=== PATIENT | female | born 1990 | race Two or more races ===

== ENCOUNTER 2016-12-09 08:10 | Emergency (ER) | payer MEDICAID ==
[~2016-12-09] VITALS: Ht 175.3 cm; Wt 89.8 kg
[2016-12-09 08:38] VITALS: BP 125/80
[2016-12-09 09:16] LABS: BASOPHILS % (AUTO) 0.8 % (0.0-2.0); EOSINOPHILS % (AUTO) 2.6 % (0.0-3.0); LYMPHOCYTES % (AUTO) 27.8 % (20.0-45.0); MEAN CORPUSCULAR HGB CONC 33.4 G/DL (32.0-36.0); MEAN CORPUSCULAR VOLUME 90 FL (80-99); MEAN PLATELET VOLUME 7.8 FL (6.5-10.1); MONOCYTES % (AUTO) 13.7 % (1.0-10.0); NEUTROPHILS % (AUTO) 55.1 % (45.0-75.0); PLATELET COUNT 268 K/UL (150-450); RED BLOOD COUNT 4.37 M/UL (4.20-5.40); RED CELL DISTRIBUTION WIDTH 11.8 % (11.6-14.8); WHITE BLOOD COUNT 7.3 K/UL (4.8-10.8)
[2016-12-09 09:20] LABS: APPEARANCE,URINE SLIGHTLY CLOUDY; KETONES,URINE NEGATIVE (NEGATIVE); LEUKOCYTE ESTERASE ,URINE 1+ (NEGATIVE); NITRITE,URINE NEGATIVE (NEGATIVE); PH,URINE 5 (4.5-8.0); PROTEIN,URINE 1+ (NEGATIVE); UROBILINOGEN,URINE NORMAL MG/DL (0.0-1.0)
[2016-12-09 09:26] LABS: PROTHROMBIN TIME 9.9 SEC (9.30-11.50)
[2016-12-09 09:35] LABS: ALANINE AMINOTRANSFERASE 26 U/L (3-33); ALBUMIN/GLOBULIN RATIO 1.3 (1.0-2.7); ANION GAP 15 (5-15); ASPARTATE AMINO TRANSFERASE 21 U/L (5-40); CALCIUM 9.4 mg/dL (8.6-10.2); CARBON DIOXIDE 24 mEQ/L (20-30); CHLORIDE 98 mEQ/L (98-107); CREATININE 0.8 mg/dL (0.5-0.9); GLOMERULAR FILTRATION RATE > 60 mL/min (>60); HEMOLYSIS 8; LIPASE 19 U/L (< 60); POTASSIUM 4.3 mEQ/L (3.4-4.9); SODIUM 137 mEQ/L (135-145); TOTAL PROTEIN 7.4 g/dL (6.6-8.7)
[2016-12-09 09:54] LABS: RBC,URINE TNTC /HPF (0 - 2); SQUAMOUS EPITHELIAL CELL,UR FEW /LPF (NONE/OCC)
[2016-12-09 09:55] LABS: BACTERIA,URINE FEW /HPF
--- NOTE | 2016-12-09 11:28 | Diagnostic Imaging Report ---
Indications: Positive test, pelvic pain, vaginal bleeding, LMP 09/12/16 Technique: Transabdominal and transvaginal real-time grayscale and duplex Doppler imaging of the pelvis was performed. Findings: Comparison: None Uterus measures 9.1 x 4.5 x 4.7cm. It demonstrates normal contour and myometrial echotexture without focal abnormality. The endometrial complex measures 24 mm in diameter. Diffusely heterogeneous. Cystic structure with internal echoes appears to protrude from the endocervical canal into the vaginal vault, 2.3 x 2.4 x 2.6 cm. It contains small linear echogenic foci but no identifiable gestational sac or pole.. No free fluid is present in the cul-de-sac. Right ovary measures 3.1 x 2.5 x 2.2 cm. It contains a 9 mm simple cystic structure, additional smaller peripheral follicles.. Duplex Doppler imaging demonstrates normal blood flow. No extra-ovarian abnormality is seen. Left ovary measures 3.2 x 1.1 x 2.6 cm. It is unremarkable in appearance. Duplex Doppler imaging demonstrates normal blood flow. No extra-ovarian abnormality is seen. IMPRESSION: 2.6 cm cystic structure with internal echoes appearing to protrude from endocervical canal and vagina. This may represent a nonviable in the setting of incomplete Enlarged, heterogeneous endometrial echo complex may represent blood clot in the setting of . Retained products of conception not excludable. 9 mm dominant follicle versus other physiologic cyst right ovary
[2016-12-09] MEDS ORDERED: PERCOCET 5-3251 EACH ORAL (12:01)
[2016-12-09] MEDS: Oxycodone/Acetaminophen 5-325 ORAL ONE ×2 (12:06→12:13)
[2016-12-09 12:13] VITALS: BP 119/89
--- NOTE | 2016-12-10 15:39 | Emergency Room Report ---
History of Present Illness General Chief Complaint: OB/Uterine Contractions Source: Patient Present Illness HPI 26 YO F [id number], ~5 weeks with pelvic cramping, bleeding since this morning with passage of clots, ?tissue. Had previous miscarriage at 5-6 weeks as well. No known anatomic abnormalities. Denies abd pain, fever/chills, discharge, diarrhea, urinary complaints. Sono done last week showed "baby is small for age." No other abnormalities noted by patient. Allergies: Coded Allergies: No Known Allergies (Unverified , 12/09/16) Patient History Past Medical History: none Past Surgical History: none Pertinent Family History: none Social History: Denies: alcohol use, drug use, smoking Last Menstrual Period: 09/12/16 Now: No : 2 Para: 0 Immunizations: UTD Reviewed Nursing Documentation: PMH: Agreed, PSxH: Agreed Nursing Documentation-PMH Past Medical History: No Stated History Review of Systems All Other Systems: negative except mentioned in HPI Physical Exam Vital Signs Date Time Temp Pulse Resp B/P Pulse Ox O2 Delivery O2 Flow Rate FiO2 12/09/16 08:28 98.2 80 19 125/80 98 Room Air Sp02 EP Interpretation: reviewed, normal General Appearance: normal inspection, well appearing, no apparent distress, alert Head: atraumatic ENT: normal ENT inspection, hearing grossly normal, normal voice Neck: normal inspection, full range of motion, supple, no bony tend Respiratory: normal inspection, lungs clear, normal breath sounds, no respiratory distress, no retraction, no wheezing Cardiovascular #1: regular rate, rhythm, no edema Gastrointestinal: normal inspection, normal bowel sounds, non tender, soft, no guarding, no hernia Genitourinary: no CVA tenderness, other - no active hemorraging currently Musculoskeletal: normal inspection, back normal, normal range of motion, Peyton' s Sign negative Neurologic: normal inspection, alert, oriented x3, responsive, director marketing III-XII nml as tested, speech normal Psychiatric: normal inspection, judgement/insight normal, mood/affect normal Skin: normal inspection, normal color, no rash Medical Decision Making Diagnostic Impression: Primary Impression: Miscarriage ER Course Likely spontaneous /miscarriage. VSS. Afebrile. No systemic symptoms for illness or from septic or retained products H&H stable. RH + Ultrasound: "2.6 cm cystic structure with internal echoes appearing to protrude from endocervical canal and vagina. This may represent a nonviable in the setting of incomplete . Enlarged, heterogeneous endometrial echo complex may represent blood clot in the setting of . Retained products of conception not excludable." Consulted Dr Mortensen by phone from OB - does NOT recommend additional medical intervention or surgical intervention at this point as patient is naturally aborting. Advised PO analgesia and return parameters for excessive bleeding PO percocet given here and Rx for same for severe pain from DC home Last Vital Signs Date Time Temp Pulse Resp B/P Pulse Ox O2 Delivery O2 Flow Rate FiO2 12/09/16 12:13 78 16 119/89 99 Room Air 12/09/16 08:38 98.2 Status: improved Disposition: HOME, SELF-CARE Condition: Improved Scripts Oxycodone/Acetaminophen 5-325* (PERCOCET 5-325 MG TABLET*) 1 Each Tablet 1 TAB ORAL Q6H Y for For Pain, #12 TAB Prov: BERTO WHELAN M.D. 12/09/16 Patient Instructions: Miscarriage, [id number] Additional Instructions: - Your body with naturally continue the process of - Take percocet as needed for severe pain - Return to ER for severe bleeding, hemorraging or other concerns BERTO WHELAN M.D. Dec 10, 2016 15:39
== END 2016-12-09 12:13 | disposition home or self-care (01) ==
LOC: EMR 08:46
DX: O03.9 Complete or unspecified spontaneous abortion without complication (principal)
CPT/HCPCS: 36415; 76830; 76856; 80053; 81003; 83690; 84702; 85025; 85610; 85730; 86850; 86900; 86901; 96360

== ENCOUNTER 2018-09-05 13:29 | Emergency (ER) | payer MEDICAID ==
[~2018-09-05] VITALS: Ht 175.3 cm; Wt 86.2 kg
[~2018-09-05 13:29] MED LIST: PERCOCET 5-3251 EACH ORAL
[2018-09-05] MEDS ORDERED: PRENATAL 19 TA1 EAC1 PO (13:37)
[2018-09-05 13:48] VITALS: BP 107/72
[2018-09-05 14:37] LABS: BASOPHILS % (AUTO) 0.8 % (0.0-2.0); EOSINOPHILS % (AUTO) 3.9 % (0.0-3.0); HEMATOCRIT 41.9 % (37.0-47.0); HEMOGLOBIN 13.8 G/DL (12.0-16.0); LYMPHOCYTES % (AUTO) 47.8 % (20.0-45.0); MEAN CORPUSCULAR VOLUME 88 FL (80-99); MONOCYTES % (AUTO) 5.8 % (1.0-10.0); NEUTROPHILS % (AUTO) 41.7 % (45.0-75.0); PLATELET COUNT 281 K/UL (150-450); RED BLOOD COUNT 4.75 M/UL (4.20-5.40); RED CELL DISTRIBUTION WIDTH 11.3 % (11.6-14.8); WHITE BLOOD COUNT 5.4 K/UL (4.8-10.8)
[2018-09-05 14:39] LABS: APPEARANCE,URINE SLIGHTLY CLOUDY; BILIRUBIN, URINE NEGATIVE (NEGATIVE); GLUCOSE, URINE (UA) NEGATIVE (NEGATIVE); KETONES,URINE NEGATIVE (NEGATIVE); LEUKOCYTE ESTERASE ,URINE 3+ (NEGATIVE); NITRITE,URINE NEGATIVE (NEGATIVE); PH,URINE 5 (4.5-8.0); PROTEIN,URINE 1+ (NEGATIVE); UROBILINOGEN,URINE NORMAL MG/DL (0.0-1.0)
[2018-09-05 14:49] LABS: COLOR,URINE YELLOW
--- NOTE | 2018-09-05 16:36 | Emergency Room Report ---
History of Present Illness General Chief Complaint: Abdominal Pain Source: Patient Present Illness HPI 28-year-old female presents to the emergency department complaining of 6 out of 10 in severity lower abdominal cramping times one week. Patient reports she had heavy menstrual periods the first time status post delivery in November one week ago. She states that she had heavy menstrual bleeding. Patient reports that her bleeding has subsided however she continues to have lower uterine pain in addition to some left-sided adnexal pain. Patient denies nausea vomiting she reports she has history of 2 miscarriages prior to her recent delivery and states that her symptoms feel very consistent with what she fell during miscarriages. She denies fevers, chills or other vaginal discharge. She denies lesions, swollen tender lymph nodes constipation, diarrhea, urinary frequency or urgency. She is . Previous normal vaginal delivery this past November with no complications. Patient reports she has been breast-feeding exclusively ever since. Allergies: Coded Allergies: No Known Allergies (Unverified , 12/09/16) Patient History Past Medical History: see triage record Past Surgical History: none Pertinent Family History: none Last Menstrual Period: delivered baby 12/21/2017 and did not have period. : 3 Para: 1 Reviewed Nursing Documentation: PMH: Agreed; PSxH: Agreed Nursing Documentation-PMH Past Medical History: No Stated History Review of Systems All Other Systems: negative except mentioned in HPI Physical Exam Vital Signs Date Time Temp Pulse Resp B/P (MAP) Pulse Ox O2 Delivery O2 Flow Rate FiO2 09/05/18 13:32 98.7 71 16 107/72 95 Room Air 98.8 Sp02 EP Interpretation: reviewed, normal General Appearance: no apparent distress, alert, GCS 15, non-toxic Head: normocephalic, atraumatic Eyes: bilateral eye normal inspection, bilateral eye PERRL ENT: hearing grossly normal, normal voice Neck: full range of motion Respiratory: lungs clear, normal breath sounds, speaking full sentences Cardiovascular #1: regular rate, rhythm, no edema Gastrointestinal: normal bowel sounds, soft, tenderness - mild lower midline ttp and left adnexal ttp. Genitourinary: normal inspection, no CVA tenderness, deferred - Pelvic exam deferred, - US Musculoskeletal: back normal, gait/station normal, normal range of motion, non- tender Neurologic: alert, oriented x3, responsive, motor strength/tone normal, sensory intact, normal gait, speech normal, grossly normal Psychiatric: judgement/insight normal Skin: normal color, no rash, warm/dry, well hydrated Medical Decision Making PA Attestation Dr. Bruno is my supervising Physician whom patient management has been discussed with. Diagnostic Impression: Primary Impression: Ovarian cyst Qualified Codes: N83.201 - Unspecified ovarian cyst, right side; N83.202 - Unspecified ovarian cyst, left side Additional Impression: UTI (urinary tract infection) Qualified Codes: N30.01 - Acute cystitis with hematuria ER Course 28-year-old female presents to the emergency department complaining of 6 out of 10 in severity lower abdominal cramping times one week. Patient reports she had heavy menstrual periods the first time status post delivery in November one week ago. She states that she had heavy menstrual bleeding. Patient reports that her bleeding has subsided however she continues to have lower uterine pain in addition to some left-sided adnexal pain. Patient denies nausea vomiting she reports she has history of 2 miscarriages prior to her recent delivery and states that her symptoms feel very consistent with what she fell during miscarriages. She denies fevers, chills or other vaginal discharge. She denies lesions, swollen tender lymph nodes constipation, diarrhea, urinary frequency or urgency. She is . Previous normal vaginal delivery this past November with no complications. Patient reports she has been breast-feeding exclusively ever since. Ddx considered but are not limited to: Fibroid, ectopic , ovarian cyst , Fibroid, Spontaneous , Vital signs: are WNL, pt. is afebrile H&PE are most consistent with: ORDERS: -CBC: no evidence of significant anemia -CMP: unremarkable -Urine hcg- Negative -UA: possible contamination, however due to symptoms will treat for UTI -Pelvic US complete- multiple ovarian cysts and some free fluid, normal Doppler flow to ovaries bilat. . ED INTERVENTIONS: - 1 liter NS Bolus DISCHARGE: At this time pt. is stable for d/c to home. Will provide printed patient care instructions, and any necessary prescriptions. Care plan and follow up instructions have been discussed with the patient prior to discharge. Labs Test 09/05/18 14:09 White Blood Count 5.4 K/UL (4.8-10.8) Red Blood Count 4.75 M/UL (4.20-5.40) Hemoglobin 13.8 G/DL (12.0-16.0) Hematocrit 41.9 % (37.0-47.0) Mean Corpuscular Volume 88 FL (80-99) Mean Corpuscular Hemoglobin 29.1 PG (27.0-31.0) Mean Corpuscular Hemoglobin Concent 33.1 G/DL (32.0-36.0) Red Cell Distribution Width 11.3 % (11.6-14.8) Platelet Count 281 K/UL (150-450) Mean Platelet Volume 7.9 FL (6.5-10.1) Neutrophils (%) (Auto) 41.7 % (45.0-75.0) Lymphocytes (%) (Auto) 47.8 % (20.0-45.0) Monocytes (%) (Auto) 5.8 % (1.0-10.0) Eosinophils (%) (Auto) 3.9 % (0.0-3.0) Basophils (%) (Auto) 0.8 % (0.0-2.0) Urine Color Yellow Urine Appearance Slightly cloudy Urine pH 5 (4.5-8.0) Urine Specific [place] 1.020 (1.005-1.035) Urine Protein 1+ (NEGATIVE) Urine Glucose (UA) Negative (NEGATIVE) Urine Ketones Negative (NEGATIVE) Urine Blood 1+ (NEGATIVE) Urine Nitrite Negative (NEGATIVE) Urine Bilirubin Negative (NEGATIVE) Urine Urobilinogen Normal MG/DL (0.0-1.0) Urine Leukocyte Esterase 3+ (NEGATIVE) Urine RBC 0-2 /HPF (0 - 2) Urine WBC 15-20 /HPF (0 - 2) Urine Squamous Epithelial Cells Many /LPF (NONE/OCC) Urine Bacteria Few /HPF (NONE) Urine HCG, Qualitative Negative (NEGATIVE) CT/MRI/US Diagnostic Results CT/MRI/US Diagnostic Results : Imaging Test Ordered: Pelvic US complete Impression multiple ovarian follicular cysts bilaterally with some free fluid in the cul-de -sac-Per preliminary US tech report- Please see report for specific details. Last Vital Signs Date Time Temp Pulse Resp B/P (MAP) Pulse Ox O2 Delivery O2 Flow Rate FiO2 09/05/18 13:48 98.8 70 16 107/72 95 Room Air 98.8 Disposition: HOME, SELF-CARE Condition: Stable Scripts Nitrofurantoin Monohyd/M-Cryst* (MACROBID 100 MG*) 100 Mg Capsule 100 MG ORAL EVERY 12 HOURS for 5 Days, #10 CAP Prov: Nanci Parham 09/05/18 Ibuprofen* (MOTRIN*) 600 Mg Tablet 600 MG ORAL THREE TIMES A DAY, #30 TAB 0 Refills Prov: Nanci Parham 09/05/18 Referrals: [facility] (PCP) Patient Instructions: Ovarian Cyst, [id number] Additional Instructions: Take medications as directed. Follow up with a Primary Care Provider in 3-5 days, even if your symptoms have resolved. --Please review list of primary care clinics, if you do not already have a primary care provider Return sooner to ED if new symptoms occur, or current symptoms become worse. - Please note that this Emergency Department Report was dictated using [employer] teacher technology software, occasionally this can lead to erroneous entry secondary to interpretation by the dictation equipment. Nanci Parham Sep 05, 2018 16:36
[2018-09-05 16:42] VITALS: BP 114/70
[2018-09-05] MEDS ORDERED: IBUPROFEN600 MG ORAL (17:03)
[2018-09-05 17:22] VITALS: BP 114/70
[2018-09-05] MEDS ORDERED: NITROFURANTOIN100 M2 ORAL (22:01)
--- NOTE | 2018-09-06 09:27 | Diagnostic Imaging Report ---
Indication:Lower abdominal and pelvic pain Technique: Grayscale and duplex Doppler imaging of the pelvis performed utilizing a transabdominal and endovaginal scan. Comparison: None Findings: The size, contour, and configuration of the uterus is within normal limits. The endometrium is uniformly echogenic and normal in thickness. The endometrium has a thickness of about 5 mm. The ovaries appear normal bilaterally with good dopplerable blood flow. There is a small amount of free fluid identified. IMPRESSION: Negative pelvic ultrasound. No acute findings.
== END 2018-09-05 17:22 | disposition home or self-care (01) ==
LOC: EMR 15:19
DX: N83.292 Other ovarian cyst, left side (principal); N83.291 Other ovarian cyst, right side; N39.0 Urinary tract infection, site not specified; R10.30 Lower abdominal pain, unspecified
CPT/HCPCS: 36415; 76830; 76856; 81003; 81025; 85025; 87086; 96360; 99284